=== PATIENT | female | born 1965 | race Caucasian/White ===

== ENCOUNTER 2018-02-12 08:39 | Outpatient (CLI) | payer BC | END 2018-02-12 23:59 | disposition home or self-care (01) | LOC: VAS 08:39 | PROVIDERS: ATTEND Pediatrics Sports Medicine | DX: R60.0 Localized edema (principal); M79.605 Pain in left leg; M47.816 Spondylosis without myelopathy or radiculopathy, lumbar region; M46.1 Sacroiliitis, not elsewhere classified; M54.6 Pain in thoracic spine; M54.41 Lumbago with sciatica, right side; M43.17 Spondylolisthesis, lumbosacral region; G56.00 Carpal tunnel syndrome, unspecified upper limb; I10 Essential (primary) hypertension; Z87.891 Personal history of nicotine dependence | CPT/HCPCS: 93971 ==